=== PATIENT | female | born 1945 | race Caucasian/White ===

== ENCOUNTER 2020-11-29 10:14 | Inpatient (IN) | payer MEDICARE ==
[~2020-11-29] VITALS: Ht 160 cm; Wt 67.6 kg
[~2020-11-29 10:14] MED LIST: etomidate 2mg/ml inj. ONE; rocuronium 10mg/ml inj IV ONE; sod chloride 0.9% 10ml flush syringe IV ONE
[2020-11-29] MEDS ORDERED: iohexol 350MG/ML 100ml bottle IV ONE (10:24)
[2020-11-29 10:34] LABS: BASOPHILS # (AUTO) 0.2 X10'3 (0-0.2); BASOPHILS % (AUTO) 1.2 % (0-1); EOSINOPHILS # (AUTO) 0.3 X10'3 (0-0.9); EOSINOPHILS % (AUTO) 1.9 % (0-6); HEMATOCRIT 41.6 % (35.0-45.0); HEMOGLOBIN 13.7 g/dl (12.0-16.0); LYMPHOCYTES % (AUTO) 18.3 % (21-51); MEAN CORPUSCULAR HEMOGLOBIN 30.5 PG (27.0-31.0); MEAN CORPUSCULAR VOLUME 92.5 FL (78-98); MEAN PLATELET VOLUME 7.9 FL (7.4-10.4); MONOCYTES # (AUTO) 1.5 X10'3 (0-0.9); MONOCYTES % (AUTO) 9.1 % (2-12); NEUTROPHILS # (AUTO) 11.5 X10'3 (1.8-7.7); NEUTROPHILS % (AUTO) 69.5 % (42-75); PLATELET COUNT 260 X10'3 (140-440); RED CELL DISTRIBUTION WIDTH 13.8 % (11.5-14.5); WHITE BLOOD COUNT 16.5 X10'3 (4.5-11.0)
[2020-11-29 10:54] LABS: GLUCOSE 157 MG/DL (70-104)
[2020-11-29 10:55] LABS: ALANINE AMINOTRANSFERASE 52 U/L (12-78); ALBUMIN 2.8 G/DL (3.4-5.0); ALBUMIN/GLOBULIN RATIO 0.6 (1.1-1.5); ALKALINE PHOSPHATASE 82 IU/L (46-116); ANION GAP 9 (8-16); ASPARTATE AMINO TRANSFERASE 31 U/L (10-37); BILIRUBIN,TOTAL 0.3 MG/DL (0.1-1.0); BLOOD UREA NITROGEN 24 MG/DL (7-18); BUN/CREATININE RATIO 27.6 (6.6-38.0); CHLORIDE 103 MMOL/L (99-107); CREATININE 0.87 MG/DL (0.40-0.90); POTASSIUM 4.1 MMOL/L (3.5-5.1); SODIUM 137 MMOL/L (135-145); TOTAL CARBON DIOXIDE 24.9 MMOL/L (24-32); TOTAL PROTEIN 7.4 G/DL (6.4-8.2); eGFR 63 ML/MIN
[2020-11-29 12:11] LABS: ABG BASE EXCESS -2.1 mmol/L (-2.0-2.0); ABG HCO3 21.7 mmol/L (22.0-26.0); ABG PCO2 (T) 34.6 mmHg (32.0-45.0); ABG PO2 (T) 53.9 mmHg (75.0-100.0); ALLEN'S TEST POSITIVE; FCOHb 0.3 % (0.0-3.9); FMetHb 0.1 % (0.0-1.5); FO2Hb 88.6 % (94-97); TOTAL HEMOGLOBIN 13.9 G/dl (12.0-16.0)
[2020-11-29] MEDS ORDERED: INSU100V9 SQ (12:51)
[2020-11-29] MEDS ORDERED: ASPI-845 PO (12:51)
[2020-11-29] MEDS ORDERED: PANT-47 PO (12:51)
[2020-11-29] MEDS ORDERED: INSU100C10 SQ (12:51)
[2020-11-29] MEDS ORDERED: IPRA4AER IH (12:51)
[2020-11-29] MEDS ORDERED: PRED20TA PO (12:51)
[2020-11-29] MEDS ORDERED: FLUO10CA30 PO (12:51)
[2020-11-29] MEDS ORDERED: NITR0.4T51 SL (12:51)
[2020-11-29] MEDS ORDERED: ENOX40SY7 SUBCUT (12:51)
[2020-11-29] MEDS ORDERED: POLY17PO10 PO (12:51)
[2020-11-29] MEDS ORDERED: vancomycin/NS 1 GM ADD-VANTAGE 250 ML IV ONE (12:55)
[2020-11-29] MEDS ORDERED: piperacillin/tazo 3.375gm/50ml 50 ML IV ONE (12:55)
[2020-11-29] MEDS ORDERED: budesonide 0.5mg/2ml UD nebule IH STA (12:59)
[2020-11-29] MEDS ORDERED: albuterol 2.5 MG/3 ML nebule NEB ONE (13:00)
[2020-11-29] MEDS ORDERED: cefepime 2g/NS 100ml ADVANTAGE 100 ML IV ONE (13:01)
[2020-11-29] MEDS ORDERED: CEFEPIME 2gm in D5W 50mL 50 ML IV ONE (13:10)
[2020-11-29] MEDS ORDERED: acetaminophen 325mg tablet PO PRN ×2 (13:35)
[2020-11-29] MEDS ORDERED: sodium phosphate inj. 15 MMOL in dextrose 5%-water 250 ML IV PRN (13:35)
[2020-11-29] MEDS ORDERED: magnesium 2GM in 50ml NS 50 ML IV PRN (13:35)
[2020-11-29] MEDS ORDERED: ipratropium/albuterol 3ml nebule NEB PRN (13:35)
[2020-11-29] MEDS ORDERED: magnesium Cl slow-release 64mg tablet PO PRN (13:35)
[2020-11-29] MEDS ORDERED: magnesium 4gm in 100ml NS 100 ML IV PRN (13:35)
[2020-11-29] MEDS ORDERED: bisacodyl 10mg suppository rectal RC PRN (13:35)
[2020-11-29] MEDS ORDERED: sodium phosphate inj. 30 MMOL in dextrose 5%-water 250 ML IV PRN (13:35)
[2020-11-29] MEDS ORDERED: Neutra Phos packet PO PRN (13:35)
[2020-11-29] MEDS ORDERED: ondansetron/PF 4mg/2ml inj IV PRN (13:35)
[2020-11-29] MEDS ORDERED: magnesium hydroxide 30ml (MOM) UD suspension PO PRN (13:35)
[2020-11-29] MEDS ORDERED: potassium Cl 20 mEq SR tablet PO PRN ×2 (13:35)
[2020-11-29] MEDS ORDERED: LIDOcaine 2% 10ml TOPICAL JELLY (Urojet) TP ONE (13:35)
[2020-11-29] MEDS: normal saline 1000ml 1,000 ML IV SCH (14:38)
[2020-11-29] MEDS: methylPREDNISolone sod succ 125mg/2ml vial IV SCH ×2 (14:38→20:05)
[2020-11-29] MEDS: dexmedetomidine/D5W 100mL 100 ML IV PRN (17:50)
[2020-11-29 18:00] VITALS: BP 142/74
[2020-11-29 19:00] VITALS: BP 81/52
[2020-11-29 20:00] VITALS: BP 88/55
[2020-11-29] MEDS: docusate sod 100mg capsule PO SCH (20:00)
[2020-11-29] MEDS: heparin, porcine 5000 units/ml vial SQ SCH (20:04)
[2020-11-29] MEDS: sennosides/docusate sodium tablet PO SCH (20:43)
[2020-11-29 21:00] VITALS: BP 109/70
[2020-11-29 22:00] VITALS: BP 86/51
[2020-11-30] VITALS (23 sets, daily range): BP systolic 83–121; BP diastolic 42–75
[2020-11-30] MEDS: cefepime 1GM in D5W 50mL 50 ML IV SCH ×5 (01:39→23:18)
[2020-11-30] MEDS: methylPREDNISolone sod succ 125mg/2ml vial IV SCH ×4 (01:40→20:50)
[2020-11-30] MEDS: normal saline 1000ml 1,000 ML IV SCH ×2 (02:56→15:43)
[2020-11-30] MEDS: dexmedetomidine/D5W 100mL 100 ML IV PRN ×3 (03:38→23:35)
[2020-11-30] MEDS ORDERED: insulin Lispro (HumaLOG) vial - multi-dose SQ SCH (04:50)
[2020-11-30 06:32] LABS: BASOPHILS % (AUTO) 0.2 % (0-1); EOSINOPHILS % (AUTO) 0.1 % (0-6); HEMOGLOBIN 11.8 g/dl (12.0-16.0); LYMPHOCYTES # (AUTO) 0.8 X10'3 (1.1-4.8); LYMPHOCYTES % (AUTO) 6.3 % (21-51); MEAN CORPUSCULAR HEMOGLOBIN 30.8 PG (27.0-31.0); MEAN CORPUSCULAR HGB CONC 33.7 g/dL (33.0-36.5); MEAN CORPUSCULAR VOLUME 91.5 FL (78-98); MEAN PLATELET VOLUME 8.1 FL (7.4-10.4); MONOCYTES # (AUTO) 0.3 X10'3 (0-0.9); MONOCYTES % (AUTO) 2.8 % (2-12); NEUTROPHILS # (AUTO) 10.8 X10'3 (1.8-7.7); NEUTROPHILS % (AUTO) 90.6 % (42-75); PLATELET COUNT 170 X10'3 (140-440); RED BLOOD COUNT 3.83 X10'6 (4.20-5.60); RED CELL DISTRIBUTION WIDTH 13.8 % (11.5-14.5)
[2020-11-30 07:08] LABS: ALANINE AMINOTRANSFERASE 39 U/L (12-78); ALBUMIN 2.2 G/DL (3.4-5.0); ALBUMIN/GLOBULIN RATIO 0.5 (1.1-1.5); ALKALINE PHOSPHATASE 72 IU/L (46-116); ANION GAP 11 (8-16); ASPARTATE AMINO TRANSFERASE 20 U/L (10-37); BILIRUBIN,TOTAL 0.5 MG/DL (0.1-1.0); BLOOD UREA NITROGEN 25 MG/DL (7-18); BUN/CREATININE RATIO 34.2 (6.6-38.0); CALCIUM 8.1 MG/DL (8.5-10.1); CHLORIDE 105 MMOL/L (99-107); CREATININE 0.73 MG/DL (0.40-0.90); GLUCOSE 188 MG/DL (70-104); MAGNESIUM 2.4 MG/DL (1.5-2.4); PHOSPHORUS 4.1 MG/DL (2.3-4.5); SODIUM 138 MMOL/L (135-145); TOTAL CARBON DIOXIDE 22.2 MMOL/L (24-32); TOTAL PROTEIN 6.3 G/DL (6.4-8.2); TROPONIN I < 0.04 NG/ML (0.0-0.05); eGFR 78 ML/MIN
[2020-11-30] MEDS ORDERED: pantoprazole 40 MG vial IV SCH (08:00)
[2020-11-30] MEDS: docusate sod 100mg capsule PO SCH ×2 (08:00→20:00)
[2020-11-30] MEDS: heparin, porcine 5000 units/ml vial SQ SCH ×2 (08:06→20:50)
[2020-11-30] MEDS ORDERED: midazolam 1 mg/ML 2ml injection ONE ×3 (10:20→10:37)
[2020-11-30] MEDS ORDERED: propofol 1000mg/100ml bottle 100 ML IV ONE (10:38)
[2020-11-30] MEDS ORDERED: midazolam 1 mg/ML 2ml injection IV ONE (10:40)
[2020-11-30] MEDS ORDERED: fentaNYL/PF 50MCG/1 ML 2ML syringe IV PRN (10:40)
[2020-11-30] MEDS ORDERED: CISatracurium besylate inj. 100 MG in normal saline 100ml IV soln 90 ML IV PRN (10:45)
[2020-11-30 11:08] LABS: ABG BASE EXCESS -4.1 mmol/L (-2.0-2.0); ABG HCO3 21.7 mmol/L (22.0-26.0); ABG OXYGEN SATURATION 79.8 % (94-97); ABG PCO2 (T) 42.5 mmHg (32.0-45.0); ABG PO2 (T) 45.9 mmHg (75.0-100.0); ALLEN'S TEST POSITIVE; FCOHb 0.3 % (0.0-3.9); FMetHb 0.1 % (0.0-1.5); FO2Hb 79.5 % (94-97); PEEP 12 cm H2O; RESPIRATORY RATE 22 b/min; TOTAL HEMOGLOBIN 12.8 G/dl (12.0-16.0)
[2020-11-30] MEDS: NORepinephrine 8mg/ 250ml NS 250 ML IV SCH ×2 (11:16→21:12)
[2020-11-30 11:25] LABS: OXYGEN SATURATION (MIXED VEN) 74.4 % (60-80)
[2020-11-30] MEDS: FENTANYL-0.9 % NACL/PF 100 ML IV PRN (11:34)
[2020-11-30] MEDS: midazolam 100mg in NS 100ml 100 ML IV PRN ×2 (11:34→19:25)
[2020-11-30] MEDS: propofol 1000mg/100ml bottle 100 ML IV SCH ×2 (11:52→23:18)
--- NOTE | 2020-11-30 11:57 | NUR ---
TF consult: Pt with recent h/o COVID-19 PNA admit for acute respiratory failure and required intubation today. TF recommendations were calculated to meet 100% of patient's estimated nutrient needs using IBW as current documented wt isn't scaled. Noted Propofol has been added to med list though no rate or documentation of it being administered. Will monitor for Propofol rate and scaled weight to determine need to adjust TF recommendations. [facility] 11/28, with routine bowel care available. Will continue to follow closely. Recommendations: 1) Continuous TF using Vital AF with goal rate of 50 mL/hr to provide 1200 mL total volume/day, 1440 kcal, 90 g protein, and 973 mL water 2) Monitor for a scaled wt and Propofol rate and adjust TF recommendations as appropriate 3) Additional 100 mL water flush Q4H; monitor serum Na and need to adjust 4) Prealbumin q Thursday/ 5) Daily scaled weights 6) Routine bowel care Addendum: 11/30/20 at [address] Amended: Links added.
[2020-11-30] MEDS ORDERED: VANCOmycin 1250MG/NS 250ml Bag 250 ML IV SCH (14:00)
[2020-11-30] MEDS ORDERED: insulin regular, human U-100 3ml vial - multi-dose SQ SCH (14:40)
[2020-11-30] MEDS ORDERED: lactobacillus rhamnosus 10,000 MMU CELLS/CAPSULE PO SCH (20:00)
[2020-11-30] MEDS ORDERED: insulin glargine (Lantus) pen - multi-dose SQ SCH (21:00)
[2020-11-30] MEDS: sennosides/docusate sodium tablet PO SCH (21:09)
[2020-12-01] VITALS: BP 94/50
[2020-12-01 01:00] VITALS: BP 87/61
[2020-12-01] MEDS: methylPREDNISolone sod succ 125mg/2ml vial IV SCH (01:48)
[2020-12-01] MEDS: FENTANYL-0.9 % NACL/PF 100 ML IV PRN (01:48)
[2020-12-01 02:00] VITALS: BP 96/53
[2020-12-01] MEDS: NORepinephrine 8mg/ 250ml NS 250 ML IV SCH (02:42)
[2020-12-01 03:00] VITALS: BP 105/64
[2020-12-01 04:10] LABS: BASOPHILS % (AUTO) 0 % (0-1); EOSINOPHILS % (AUTO) 0 % (0-6); HEMATOCRIT 36.2 % (35.0-45.0); HEMOGLOBIN 11.8 g/dl (12.0-16.0); LYMPHOCYTES # (AUTO) 0.5 X10'3 (1.1-4.8); LYMPHOCYTES % (AUTO) 2.1 % (21-51); MEAN CORPUSCULAR HEMOGLOBIN 30.6 PG (27.0-31.0); MEAN CORPUSCULAR HGB CONC 32.5 g/dL (33.0-36.5); MEAN CORPUSCULAR VOLUME 94.1 FL (78-98); MEAN PLATELET VOLUME 8.4 FL (7.4-10.4); MONOCYTES # (AUTO) 1.8 X10'3 (0-0.9); MONOCYTES % (AUTO) 8.1 % (2-12); NEUTROPHILS # (AUTO) 19.9 X10'3 (1.8-7.7); NEUTROPHILS % (AUTO) 89.8 % (42-75); PLATELET COUNT 267 X10'3 (140-440); RED BLOOD COUNT 3.85 X10'6 (4.20-5.60); RED CELL DISTRIBUTION WIDTH 14.1 % (11.5-14.5); WHITE BLOOD COUNT 22.2 X10'3 (4.5-11.0)
[2020-12-01 04:22] LABS: ALANINE AMINOTRANSFERASE 53 U/L (12-78); ALBUMIN 2.2 G/DL (3.4-5.0); ALBUMIN/GLOBULIN RATIO 0.6 (1.1-1.5); ALKALINE PHOSPHATASE 70 IU/L (46-116); ANION GAP 14 (8-16); ASPARTATE AMINO TRANSFERASE 44 U/L (10-37); BILIRUBIN,TOTAL 0.3 MG/DL (0.1-1.0); BLOOD UREA NITROGEN 39 MG/DL (7-18); BUN/CREATININE RATIO 25.7 (6.6-38.0); CALCIUM 7.4 MG/DL (8.5-10.1); CHLORIDE 107 MMOL/L (99-107); CREATININE 1.52 MG/DL (0.40-0.90); GLUCOSE 278 MG/DL (70-104); MAGNESIUM 2.3 MG/DL (1.5-2.4); PHOSPHORUS 6.3 MG/DL (2.3-4.5); POTASSIUM 5.8 MMOL/L (3.5-5.1); SODIUM 140 MMOL/L (135-145); TOTAL PROTEIN 6.1 G/DL (6.4-8.2); TRIGLYCERIDES 200 MG/DL (20-135); eGFR 33 ML/MIN
[2020-12-01 05:10] LABS: TOTAL CELLS COUNTED 100
[2020-12-01 05:11] LABS: ANISOCYTOSIS 1+; PLATELET ESTIMATE NORMAL
[2020-12-01] MEDS ORDERED: polyethylene glycol 3350 17gm powd pack PO PRN (13:35)
[2020-12-01] MEDS ORDERED: bisacodyl 10mg suppository rectal RC PRN (13:35)
[2020-12-01] MEDS ORDERED: lactulose 20gm/30ml cup PO PRN (13:35)
[2020-12-01] MEDS ORDERED: VANCOMYCIN 750MG IV in NS 250 ML IV SCH (14:00)
[2020-12-01] MEDS ORDERED: mineral oil/petrolatum ophthal oint EACHEYE SCH (14:00)
--- NOTE | 2020-12-01 14:51 | NUR ---
pt. @03:51. Body released to [place] @14:10.
[2020-12-04] MEDS ORDERED: VANCOMYCIN LEVEL IV ONE (13:30)
== END 2020-12-01 14:00 | DRG 208 ==
LOC: ER 10:15 → ED HOLD 13:49 → CICU 2S 16:50
PROVIDERS: ADMIT Internal Medicine Critical Care Medicine; ATTEND Internal Medicine Critical Care Medicine
PROC: 5A09357 Assistance with Respiratory Ventilation, Less than 24 Consecutive Hours, Continuous Positive Airway Pressure (ICD-10-PCS; 2020-11-29)
PROC: B32T1ZZ Computerized Tomography (CT Scan) of Left Pulmonary Artery using Low Osmolar Contrast (ICD-10-PCS; 2020-11-29)
PROC: B3201ZZ Computerized Tomography (CT Scan) of Thoracic Aorta using Low Osmolar Contrast (ICD-10-PCS; 2020-11-29)
PROC: B32S1ZZ Computerized Tomography (CT Scan) of Right Pulmonary Artery using Low Osmolar Contrast (ICD-10-PCS; 2020-11-29)
PROC: 5A1935Z Respiratory Ventilation, Less than 24 Consecutive Hours (ICD-10-PCS; principal; 2020-11-30)
PROC: 0BH17EZ Insertion of Endotracheal Airway into Trachea, Via Natural or Artificial Opening (ICD-10-PCS; 2020-11-30)
DX: U07.1 COVID-19 (principal); J96.00 Acute respiratory failure, unspecified whether with hypoxia or hypercapnia; J18.9 Pneumonia, unspecified organism; I10 Essential (primary) hypertension; Z66 Do not resuscitate; F03.90 Unspecified dementia, unspecified severity, without behavioral disturbance, psychotic disturbance, mood disturbance, and anxiety; U09.9 Post COVID-19 condition, unspecified; E11.9 Type 2 diabetes mellitus without complications; Z87.01 Personal history of pneumonia (recurrent); Z88.0 Allergy status to penicillin; Z79.899 Other long term (current) drug therapy; Z79.82 Long term (current) use of aspirin; Z79.4 Long term (current) use of insulin
CPT/HCPCS: 36415; 36600; 71045; 71275; 80053; 82803; 82810; 82948; 83605; 83735; 83880; 84100; 84145; 84439; 84443; 84478; 84484; 85007; 85018; 85025; 87040; 93005; 93306; 94002; 94003; 94640; 94660; 94760; 99285; C9113; G0378; J0692; J1644; J1815; J2250; J2704; J2930; J3010; J3370; J7030; J7626; Q9967